=== PATIENT | female | born 1990 | race Caucasian/White ===

== ENCOUNTER 2016-12-24 15:15 | Observation (INO) | payer OTHER ==
[2016-12-24] MEDS ORDERED: 0.9 % SODIUM CHLORIDE 1,000 ML IV ONE (15:22)
[2016-12-24] MEDS ORDERED: ONDANSETRON HCL/PF 4 MG/ 2ML VIAL IVP ONE (15:22)
[2016-12-24 15:34] LABS: BASOPHILS % 0.9 (0.0-1.5); EOSINOPHILS % 1.2 % (0.0-6.8); LYMPHOCYTES # 1.7 # k/uL (0.6-4.0); MEAN CORPUSCULAR HEMOGLOBIN 33.8 pg (28.0-34.0); MONOCYTES # 0.3 # k/uL (0.0-0.9); MONOCYTES % 6.2 % (0.0-11.0); NEUTROPHILS # 2.8 # k/uL (1.4-7.7)
--- NOTE | 2016-12-24 15:34 | ED Physician Documentation ---
Psychological Disorders - HISTORIAN Historian: patient - HPI Chief Complaint: Psychological Disorder Additional Information: 26 yo F here for etoh withdrawl. Was going to [facility] but no current beds. Was called by Dr. Hernandez and asked to eval. Patient will likely need to be admitted obs pending placement to [facility]. She tells me she drank 2 beers and unknown amount of vodka today. States she has been drinking "for the last 2- 3 days straight." No recent illness. Medical history includes stroke which was believed 2/2 OC use. States drinking more due to stress, unwilling to talk about specific stressors. Denies HI, SI, denies coingestion. Last alcohol was about 1200 today. States only had about 2 beers today but is clearly intoxicated. All other systems reviewed and negative except per HPI. - ROS CONST: none NEURO/PSYCH: headache EYES/ENT: none CVS/RESP: none GI/: nausea, vomiting, abdominal pain MS/SKIN/LYMPH: denies: rash - PAST HX Psychiatric problems: other (alcoholism) DVT/PE Risk Factors: other (prior VCA) Surgical History: no surgical history Immunizations: UTD Allergies/Adverse Reactions: Allergies Allergy/AdvReac Type Severity Reaction Status Date / Time cortisone Allergy Verified 12/24/16 15:45 Home Medications: Ambulatory Orders Medication Instructions Recorded Buspirone HCl [Buspar] 10 mg PO DAILY 12/24/16 Fluoxetine HCl [Fluoxetine HCl] 40 mg PO DAILY 12/24/16 Naltrexone HCl [Revia] 50 mg PO DAILY 12/24/16 Trazodone HCl 50 mg PO HS 12/24/16 - Social HX Smoking History: cigarettes Marital Status: single Drug Use: none, other (etoh) - Family HX Family HX: mental illness - VITAL SIGNS Vital Signs: Vital Signs Temp Pulse Resp BP Pulse Ox 98.1 F 97 H 18 122/87 99 12/24/16 15:15 12/24/16 15:34 12/24/16 15:15 12/24/16 15:15 12/24/16 15:15 - REVIEWED ASSESSMENTS Nursing Assessment Reviewed: Yes Vitals Reviewed: Yes ED Results Lab/Radiology - Lab Results Lab Results: Lab Results 12/24/16 15:30 WBC 5.20 K/ul K/ul (4.00-12.00) RBC 4.63 M/ul M/ul (3.90-5.20) Hgb 15.6 g/dL g/dL (12.0-16.0) Hct 46.1 % % (34.5-46.5) MCV 99.5 fl fl (80.0-100.0) MCH 33.8 pg pg (28.0-34.0) MCHC 33.9 g/dL g/dL (30.0-36.0) RDW 14.1 % % (11.3-14.3) Plt Count 263 K/mm3 K/mm3 (130-400) Neut % (Auto) 54.7 % % (39.0-79.0) Lymph % (Auto) 33.3 % % (16.0-50.0) [place] % (Auto) 6.2 % % (0.0-11.0) Eos % (Auto) 1.2 % % (0.0-6.8) Baso % (Auto) 0.9 (0.0-1.5) Neut # 2.8 # k/uL # k/uL (1.4-7.7) Lymph # 1.7 # k/uL # k/uL (0.6-4.0) [place] # 0.3 # k/uL # k/uL (0.0-0.9) Eos # 0.1 # k/uL # k/uL (0.0-0.6) Baso # 0.0 # k/uL # k/uL (0.0-0.5) Reactive Lymphs % 3.7 % % (0.0-5.0) Reactive Lymphs # 0.2 # k/uL # k/uL (0.0-0.8) - Orders Orders: ED Orders Category Date Time Status Alcohol Withdrawal Assessment Q1H Care 12/24/16 15:23 Active Continuous EKG monitoring Q1H Care 12/24/16 15:[address] Saline Lock/IV Now Care 12/24/16 15:22 Active CBC/PLATELET/DIFF Stat Lab 12/24/16 15:30 Completed CMP [CMP] Routine Lab 12/24/16 15:30 Received ETHANOL MEDICAL USE ONLY Stat Lab 12/24/16 15:30 Received UA [URINALYSIS] Routine Lab 12/24/16 15:23 Ordered UDS [DRUG SCREEN URINE MEDICAL ONLY] Routine Lab 12/24/16 Ordered 0.9 % Sodium Chloride [Normal Saline] 1,000 ml Med 12/24/16 15:22 Active IV Q1H LORazepam [Ativan] Med 12/24/16 15:29 Ordered 2 mg IVP Q1H PRN Ondansetron HCl/Pf [Zofran 4 mg/2 ml] Med 12/24/16 15:22 Discontinued 4 mg IVP NOW ONE Transfer Routine Transfer 12/24/16 Ordered Psych Physical Exam - Physical Exam General Appearance: mild distress ENT: nml ENT inspection, other (dry mucous membranes) Eyes: PERRL. No: nystagmus Mental Status: tearful Suicide Attempts: denies Orientation: nml x3 Cranial Nerves: CN's intact as tested Respiratory: no resp distress, breath sounds normal CVS: heart sounds normal, no murmur, tachycardia Abdomen: non-tender, no organomegaly, nml bowel sounds Skin: warm/dry, normal color. No: diaphoresis Extremities: non-tender, no evidence of injury Discharge Clincal Impression: Alcohol abuse Alcohol dependence with withdrawal Qualifiers: Complication of substance-induced condition: uncomplicated Qualified Code(s): F10.230 - Alcohol dependence with withdrawal, uncomplicated Referrals: Primary Doctor,No [Primary Care Provider] - 2 Days Home Medications: Ambulatory Orders Buspirone HCl [Buspar] 10 mg PO DAILY 12/24/16 Fluoxetine HCl [Fluoxetine HCl] 40 mg PO DAILY 12/24/16 Naltrexone HCl [Revia] 50 mg PO DAILY 12/24/16 Trazodone HCl 50 mg PO HS 12/24/16 Comments: admitted obs for withdrawl, pending [facility] placement, likely tomorrow. Dr. Hernandez is aware of patient. [facility] protocol initiated. Initial score 1 in ED. Condition: Fair Disposition: ADMITTED INPATIENT Decision to Admit: [id number] Date of Decison to Admit: 12/24/16 Decision Time: 15:37
[2016-12-24 15:53] LABS: eGFR (African) > 60; eGFR (Non-African) > 60
[2016-12-24 16:13] LABS: APPEARANCE,URINE Clear (CLEAR); COLOR,URINE Yellow (YELLOW); OCCULT BLOOD,URINE Trace-lysed (NEGATIVE); PH URINE 6.5 (5.0 - 8.0); UROBILINOGEN URINE 0.2 Eu (0.2-1.0)
[2016-12-24 16:16] LABS: AMPHETAMINE NEGATIVE ng/mL (<1000); BARBITURATES NEGATIVE ng/mL (<300); CANNABINOIDS NEGATIVE ng/mL (<50); COCAINE NEGATIVE ng/mL (<150); METHAMPHETAMINE NEGATIVE ng/mL (<1000); METHYLENEDIOXYMETHAMPHETAMINE NEGATIVE ng/mL (<500)
[2016-12-24] MEDS ORDERED: ENOXAPARIN SODIUM 30 MG/0.3 ML DISP.SYRIN SQ SCH (16:34)
--- NOTE | 2016-12-24 16:50 | History and Physical Report ---
History of Present Illnes - History of Present Illness Reason for Visit: Chronic alcoholism/acute alcohol intoxication History of Present Illness: This is a 26 year old female admitted with chronic alcoholism/acute alcohol intoxication. She had presented to [facility] this afternoon, however they did not have a recovery room for her and she comes to our facility with plans for discharge to [facility] in the morning. Her blood alcohol level this afternoon is .470. - Past Medical History Cardiac: Other (History of central venous thrombosis). 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 MJ/benzos) Lives: With Family Domestic Violence: Negative - Health Maintenance Health Maintenance: denies: Cholesterol Influenza Vaccine: Current for this Influenza Season Pneumonia Vaccine: No Resuscitation Status: Resusciation Status Resuscitation Status Full Code - Unable to Obtain History Unable to Obtain: No Review of Systems - Review of Systems Constitutional: negative: Fever, Chills, Sweats Eyes: negative: pain ENT: negative: Ear Pain Respiratory: negative: Cough, Dry Cardiovascular: negative: Chest Pain Gastrointestinal: negative: Nausea, Vomiting, Abdominal Pain Genitourinary: negative: Dysuria, Frequency Musculoskeletal: Other (left ankle pain). negative: Neck Pain Skin: negative: Rash Neurological: Incoordination (due to intoxication). negative: Weakness, Numbness - Medications/Allergies Allergies/Adverse Reactions: Allergies Allergy/AdvReac Type Severity Reaction Status Date / Time cortisone Allergy Verified 12/24/16 15:45 Home Medications: Home Medications Buspirone HCl [Buspar] 10 mg PO DAILY 12/24/16 Fluoxetine HCl [Fluoxetine HCl] 40 mg PO DAILY 12/24/16 Naltrexone HCl [Revia] 50 mg PO DAILY 12/24/16 Trazodone HCl 50 mg PO HS 12/24/16 Current Inpatient Medications: Current Inpatient Medications Lorazepam (Ativan) 2 mg IVP Q1H PRN PRN Reason: Anxiety Exam - Exam General: Oriented to Person, Other (Acutely intoxicated 26 year old female. ), Average Body Habits HEENT: Atraumatic, PERRLA, EOMI. No: Scleral Icterus Neck: No: Stridor, Rigidity Lungs: Clear to auscultation, Normal air movement, Speaks full Sentences. No: Respiratory Distress, Wheezes, Rales Cardiovascular: Regular rate, Normal S1, Normal S2 Murmur: No: Systolic Murmur Murmur Location: [place] Abdomen: Normal bowel sounds, Soft, No tenderness, No hepatospenomegaly, No masses Genitourinary: No: Right Inguinal Hernia, Left Inguinal Hernia Male Genitourinary: No: Scrotal Edema Female Genitourinary: No: Prolapse, Masses Integumentary: Normal, [place], Warm Extremities: No clubbing, No cyanosis, Other (some pain with ROM of left ankle) Neurological: Normal speech Psych/Mental Status: No: Intact Judgment - Laboratory Results Laboratory Results: FÉLIX is 0.470 Mild elevation in transaminases Assessment/Plan - Assessment/Plan (1) Acute alcohol intoxication Status: Acute Current Visit: Yes Assessment: She is admitted for withdrawal protocol Plan is for discharge to [facility] tomorrow morning (2) Alcohol dependence with withdrawal Status: Acute Current Visit: Yes Qualifiers: Complication of substance-induced condition: uncomplicated Qualified Code(s ): F10.230 - Alcohol dependence with withdrawal, uncomplicated VTE Assessment - RISK FACTOR SCORE VTE RISK FACTOR SCORES: AGE 40-60 YEARS, ACUTE RESPIRATORY FAILURE/SEVERE COPD - RISK VTE LOW RISK: SCORE OF 1 OR LESS (RISK PROXIMAL DVT 0.4%) NO PROPHYLAXIS NEEDED VTE MODERATE RISK: SCORE OF 2 (RISK PROXIMAL DVT 2-4%) PROPHYAXIS NEEDED
[2016-12-24] MEDS: NICOTINE 14mg PATCH.TD24 TD SCH (17:48)
[2016-12-24 18:21] VITALS: BMI 21.8
[2016-12-24] MEDS ORDERED: SALINE FLUSH 10 ML DISP.SYRIN IVF ONE (20:44)
[2016-12-24] MEDS: LORazepam 2 MG/ML VIAL IVP PRN ×2 (21:20→23:33)
[2016-12-24] MEDS: 0.9 % SODIUM CHLORIDE 1,000 ML IV SCH (21:28)
[2016-12-25] MEDS: LORazepam 2 MG/ML VIAL IVP PRN (03:35)
[2016-12-25] MEDS: 0.9 % SODIUM CHLORIDE 1,000 ML IV SCH (05:31)
[2016-12-25 08:08] VITALS: BP 139/99
[2016-12-25] MEDS: NICOTINE 14mg PATCH.TD24 TD SCH (09:05)
--- NOTE | 2016-12-26 10:19 | Discharge Summary ---
DATE OF ADMISSION: December 24, 2016 DATE OF DISCHARGE: December 25, 2016 DIAGNOSES ON THIS HOSPITALIZATION: 1. Acute alcohol intoxication. 2. Chronic alcoholism. SUMMARIZATION OF ADMISSION HISTORY AND PHYSICAL: This 26-year-old female presented initially to [facility] on the day of admission with plans to be admitted there. At that time, she was acutely intoxicated and later proved to have a blood alcohol level of 0.470. They did not have a recovery room available, so she was admitted to our facility overnight for detoxification and then with plans to transfer her to [facility] in the morning. HOSPITAL COURSE: She was admitted. Her blood alcohol had come down to 0.218 after 6 hours of being in the hospital. Her sensorium had cleared significantly. We did place a nicotine patch during her stay. On the morning of discharge, she was discharged to [facility] with the current medications. She will be under alcohol withdrawal protocol there at [facility]. I will see her again tomorrow morning for follow up. CONDITION ON DISCHARGE: She is discharged to [facility] in markedly improved condition. MURIEL
== END 2016-12-25 10:35 | disposition short-term general hospital (02) ==
LOC: ED 15:15 → INTOOBSV 16:19 → SOUTH 16:19
PROVIDERS: ADMIT Family Medicine; ATTEND Family Medicine
DX: F10.229 Alcohol dependence with intoxication, unspecified (principal)
CPT/HCPCS: 80053; 80320; 80377; 81002; 85025; G0378; J2060; J2405; J7030; 96361; 96374; 96375; 96376; 99284; G0379; G0480; G0481; S1016

== ENCOUNTER 2017-05-24 13:25 | Emergency (ER) | payer OTHER ==
[2017-05-24] MEDS ORDERED: THIAMINE HCL 100 MG/ML 2ML VIAL ONE (13:30)
[2017-05-24] MEDS: THIAMINE HCL 100 MG, MVI, ADULT NO.1 WITH VIT K 10 ML, FOLIC ACID 5 MG in 0.9 % SODIUM ... IV ONE ×4 (13:30)
[2017-05-24] MEDS ORDERED: 0.9 % SODIUM CHLORIDE 1,000 ML IV ONE ×2 (13:30→14:13)
[2017-05-24] MEDS ORDERED: FOLIC ACID 5 MG/1 ML ONE (13:30)
[2017-05-24] MEDS ORDERED: MVI, ADULT NO.1 WITH VIT K 10 ML VIAL IV ONE (13:30)
[2017-05-24 13:51] LABS: EOSINOPHILS % 0.2 % (0.0-6.8); MEAN CORPUSCULAR HEMOGLOBIN 33.1 pg (28.0-34.0); MEAN CORPUSCULAR VOLUME 93.5 fl (80.0-100.0); MONOCYTES % 3.1 % (0.0-11.0); NEUTROPHILS # 5.7 # k/uL (1.4-7.7)
[2017-05-24 14:04] LABS: eGFR (African) > 60; eGFR (Non-African) > 60
[2017-05-24] MEDS: 0.9 % SODIUM CHLORIDE 1,000 ML IV ONE (14:15)
--- NOTE | 2017-05-24 15:09 | ED Physician Documentation ---
Psychological Disorders - HISTORIAN Historian: patient, parent - HPI Stated Complaint: Alcohol Intoxication Chief Complaint: Overdose Onset: days ago (started 5 days ago) Intent: no answer Severity: severe Further Comments: yes (26 year old female patient brought in by parents with intoxication. Patient reports a 5 day history of drinking, "5 bottles today". Parents report a 15 year history of ETOH abuse. Inpatient at [facility] for 28 days. Patient denies any drug use. Patient unable to contribute to ROS and history due to intoxication.) - ROS CONST: none NEURO/PSYCH: none EYES/ENT: none CVS/RESP: none GI/: denies: nausea, vomiting Comment: Increased stress related to school per parents. - PAST HX Psychiatric problems: depression DVT/PE Risk Factors: none Surgical History: no surgical history Allergies/Adverse Reactions: Allergies Allergy/AdvReac Type Severity Reaction Status Date / Time cortisone Allergy Verified 05/24/17 14:09 Home Medications: Ambulatory Orders Medication Instructions Recorded Fluoxetine HCl [Fluoxetine HCl] 40 mg PO DAILY 12/24/16 - Social HX Smoking History: non-smoker - Family HX Family HX: denies: other - VITAL SIGNS Vital Signs: Vital Signs Temp Pulse Resp BP Pulse Ox 98 F 99 H 18 141/95 99 05/24/17 13:25 05/24/17 15:15 05/24/17 15:15 05/24/17 15:15 05/24/17 15:15 - REVIEWED ASSESSMENTS Nursing Assessment Reviewed: Yes Vitals Reviewed: Yes Progress - Progress Progress: Patient extremely intoxicated on arrival, unable to answer all ROS and history. Will not state amount or what she has been drinking, "5 bottles". Discussed history with parents - patient in patient at [facility] in 12/2016; does not attend AA or have a sponsor, no counselor. 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 Parents report 15 year history of ETOH abuse. Unsure how many days patient has been relapsed. ETOH 450 - recommended transfer to higher level of care for DT treatment and psych evaluation. Recommended [facility], where both services would be available. Parents agree. ED Results Lab/Radiology - Lab Results Lab Results: Lab Results 05/24/17 05/24/17 13:45 13:45 WBC 9.20 K/ul K/ul (4.00-12.00) RBC 4.79 M/ul M/ul (3.90-5.20) Hgb 15.9 g/dL g/dL (12.0-16.0) Hct 44.7 % % (34.5-46.5) MCV 93.5 fl fl (80.0-100.0) MCH 33.1 pg pg (28.0-34.0) MCHC 35.4 g/dL g/dL (30.0-36.0) RDW 12.8 % % (11.3-14.3) Plt Count 316 K/mm3 K/mm3 (130-400) Neut % (Auto) 62.1 % % (39.0-79.0) Lymph % (Auto) 31.6 % % (16.0-50.0) [place] % (Auto) 3.1 % % (0.0-11.0) Eos % (Auto) 0.2 % % (0.0-6.8) Baso % (Auto) 1.0 (0.0-1.5) Neut # (Auto) 5.7 # k/uL # k/uL (1.4-7.7) Lymph # (Auto) 2.9 # k/uL # k/uL (0.6-4.0) [place] # (Auto) 0.3 # k/uL # k/uL (0.0-0.9) Eos # (Auto) 0.0 # k/uL # k/uL (0.0-0.6) Baso # (Auto) 0.1 # k/uL # k/uL (0.0-0.5) Reactive Lymphs % 2.1 % % (0.0-5.0) Reactive Lymphs # 0.2 # k/uL # k/uL (0.0-0.8) Sodium 144 mmol/L mmol/L (136-145) Potassium 4.1 mmol/L mmol/L (3.5-5.0) Chloride 105 mmol/L mmol/L (98-110) Carbon Dioxide 28 mmol/L mmol/L (20-32) BUN 12 mg/dL mg/dL (10-26) Creatinine 0.6 mg/dL mg/dL (0.4-1.5) Est GFR ( Amer) > 60 (60 - ) Est GFR (Non-Af Amer) > 60 (60 - ) Glucose 112 mg/dL H mg/dL (70-99) Calcium 9.1 mg/dL mg/dL (8.5-10.5) Total Bilirubin 0.7 mg/dL mg/dL (0.2-1.2) AST 119 U/L H U/L (0-41) ALT 110 U/L H U/L (0-45) Alkaline Phosphatase 91 U/L U/L (46-116) Total Protein 7.3 g/dL g/dL (6.0-8.5) Albumin 4.9 g/dL g/dL (3.0-5.5) Ethyl Alcohol 450.2 MG/DL H MG/DL (<10.0) - Orders Orders: ED Orders Category Date Time Status Apply Restraints 1T Care 05/24/17 13:40 Active Neil [Urinary catheterization] 1T Care 05/24/17 13:45 Active Remove Restraints .Once Care 05/24/17 14:52 Active CBC/PLATELET/DIFF Stat Lab 05/24/17 13:45 Completed CMP Stat Lab 05/24/17 13:45 Completed ETHANOL MEDICAL USE ONLY Stat Lab 05/24/17 13:45 Completed UA W/MICRO IF INDICATED Stat Lab 05/24/17 13:43 Ordered URINE HCG Stat Lab 05/24/17 13:56 Ordered Urine drug screen [DRUG SCREEN URINE MEDICAL ONLY] Stat Lab 05/24/17 Ordered 0.9 % Sodium Chloride [Normal Saline] 1,000 ml Med 05/24/17 13:30 Discontinued IV .STK-MED 0.9 % Sodium Chloride [Normal Saline] 1,000 ml Med 05/24/17 14:13 Discontinued IV .STK-MED 0.9 % Sodium Chloride [Normal Saline] 1,000 ml Med 05/24/17 14:12 Discontinued IV NOW Folic Acid [Folvite] Med 05/24/17 13:30 Discontinued 5 mg .ROUTE .STK-MED ONE Mvi, Adult No.1 with Vit K [M.v.i. Adult] Med 05/24/17 13:30 Discontinued 10 ml IV .STK-MED ONE Thiamine HCl Med 05/24/17 13:30 Discontinued 200 mg .ROUTE .STK-MED ONE Thiamine HCl 100 mg Med 05/24/17 13:30 Discontinued Mvi, Adult No.1 with Vit K [M.v.i. Adult] 10 ml Folic Acid [Folvite] 5 mg 0.9 % Sodium Chloride [Normal Saline] 1,000 ml IV NOW Psych Physical Exam - Physical Exam General Appearance: other (intoxicated) Eyes: PERRL Suicide Attempts: denies Orientation: uncooperative, disoriented Sensory, Motor: nml motor response Neck/Back: normal inspection Respiratory: no resp distress, chest non-tender, breath sounds normal CVS: reg rate & rhythm, heart sounds normal, equal pulses, no murmur, no gallop , PMI nml, no JVD, no friction rub, 24 Abdomen: non-tender, no organomegaly, nml bowel sounds, no distention Skin: normal color, warm/dry, NR, INT, PAL, DR Extremities: non-tender, normal range of motion, no evidence of injury, 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
[2017-05-24 15:27] VITALS: BP 141/95
[2017-05-25 05:40] LABS: AMPHETAMINE NEGATIVE ng/mL (<1000); APPEARANCE,URINE CLEAR (CLEAR); BARBITURATES NEGATIVE ng/mL (<300); CANNABINOIDS NEGATIVE ng/mL (< 50); COCAINE NEGATIVE ng/mL (<150); COLOR,URINE YELLOW (YELLOW); METHAMPHETAMINE NEGATIVE ng/mL (<1000); METHYLENEDIOXYMETHAMPHETAMINE NEGATIVE ng/mL (<500); MORPHINE NEGATIVE ng/mL (<300); OCCULT BLOOD,URINE TRACE-INTACT (NEGATIVE); PH URINE 5.5 (5.0 - 8.0); URINE HCG NEGATIVE (NEGATIVE)
== END 2017-05-24 15:15 | disposition short-term general hospital (02) ==
LOC: ED 13:25
DX: F10.920 Alcohol use, unspecified with intoxication, uncomplicated (principal); F10.21 Alcohol dependence, in remission
CPT/HCPCS: 80053; 80320; 85025; J3411; J3490; J7030; 51702; 80377; 81002; 81025; 96361; 96374; 99284; G0480; G0481; S1016

== ENCOUNTER 2017-07-09 18:18 | Emergency (ER) | payer OTHER ==
--- NOTE | 2017-07-09 18:25 | ED Physician Documentation ---
General Adult - HISTORIAN Historian: patient, paramedics - HPI Stated Complaint: seizure, etoh Chief Complaint: General Adult Onset: minutes Timing: better Severity: moderate Further Comments: yes (Pt is a 26 yo female who [facility] Pt started rehab for alcohol abuse. She denies drug abuse. Pt states that she last had etoh at about noon today and drank 3 beers. Seizure lasted 15 minutes per report and then pt appeared post-ictal. Pt has multiple patches of ecchymosis on extremities and a L forehead/temporal hematoma. Pt is communicative but still appears post-ictal. Pt states that abrasions/ecchymosis is from previous falls due to alcohol use. 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.) - ROS CONST: weakness, other (pt is post ictal and may not give reliable ROS) EYES/ENT: none CVS/RESP: none GI/: vomiting, nausea MS/SKIN/LYMPH: other (bruising) NEURO/PSYCH: other (seizure) - PAST HX Past History: other (alcohol abuse) - SOCIAL HX Smoking History: cigarettes Alcohol Use: heavy Drug Use: other (denies) - FAMILY HX Family History: No - VITAL SIGNS Vital Signs: Vital Signs Temp Pulse Resp BP Pulse Ox 141/95 05/24/17 15:15 - REVIEWED ASSESSMENTS Nursing Assessment Reviewed: Yes Vitals Reviewed: Yes <Lenin Aragon - Last Filed: 07/09/17 19:36> - VITAL SIGNS Vital Signs: Vital Signs Temp Pulse Resp BP Pulse Ox 99.3 F 118 H 20 141/101 97 07/09/17 18:20 07/09/17 18:20 07/09/17 18:20 07/09/17 18:20 07/09/17 18:20 <VIRA MALIK - Last Filed: 07/09/17 21:05> - PAST HX Allergies/Adverse Reactions: Allergies Allergy/AdvReac Type Severity Reaction Status Date / Time cortisone Allergy Verified 07/09/17 18:28 Home Medications: Ambulatory Orders Medication Instructions Recorded Fluoxetine HCl [Fluoxetine HCl] 40 mg PO DAILY 12/24/16 Glycopyrrolate [Robinul] 3 mg PO DAILY 07/09/17 Methocarbamol [Methocarbamol] 100 mg PO DAILY 07/09/17 Progress - Progress Progress: NS 1 L IVF Zofran 4 mg IV Diazepam 5 mg IV Care transferred to [facility] Malik at 1900. <Lenin Aragon - Last Filed: 07/09/17 19:36> - Progress Progress: Examination: CT head without contrast History: Seizure Comparison exam: None available Technique: Noncontrast head CT protocol. Findings: Ventricles and sulci are appropriate for patient age. Cerebrocerebellar parenchyma demonstrates normal attenuation. No evidence for parenchymal hemorrhage. No evidence for mass or mass effect. No midline shift. No extra axial fluid collections. Partial visualization of the paranasal sinuses , mastoid air cells, orbits, skull and scalp without gross irregularity. Impression: No acute parenchymal process. No hemorrhage. Electronically signed on Jul 09, 2017 8:28:15 PM CDT by: Alverto Mittal 2042, Seizure activity, frothing, stiffened extremities, slight tonic clonic activity. Given 3 mg valium IVP. VS remained stable 142/106, puls eox 97%, pulse 100, R 16. FSG 102. ETOH this evening 76. May visit to this ER shows ETOH 450. No HX seizure disorder/activity in previous visits here in December, May. 2100, pt accepted for transfer to [facility] ER per Dr. Faith. <VIRA MALIK - Last Filed: 07/09/17 21:05> ED Results Lab/Radiology - Lab Results Lab Results: Lab Results 07/09/17 07/09/17 07/09/17 19:19 19:19 19:19 WBC 8.30 K/ul K/ul (4.00-12.00) RBC 4.51 M/ul M/ul (3.90-5.20) Hgb 15.2 g/dL g/dL (12.0-16.0) Hct 43.4 % % (34.5-46.5) MCV 96.2 fl fl (80.0-100.0) MCH 33.7 pg pg (28.0-34.0) MCHC 35.1 g/dL g/dL (30.0-36.0) RDW 14.3 % % (11.3-14.3) Plt Count 133 K/mm3 K/mm3 (130-400) Neut % (Auto) 86.1 % H % (39.0-79.0) Lymph % (Auto) 9.5 % L % (16.0-50.0) [place] % (Auto) 3.1 % % (0.0-11.0) Eos % (Auto) 0.4 % % (0.0-6.8) Baso % (Auto) 0.3 (0.0-1.5) Neut # (Auto) 7.1 # k/uL # k/uL (1.4-7.7) Lymph # (Auto) 0.8 # k/uL # k/uL (0.6-4.0) [place] # (Auto) 0.2 # k/uL # k/uL (0.0-0.9) Eos # (Auto) 0.0 # k/uL # k/uL (0.0-0.6) Baso # (Auto) 0.0 # k/uL # k/uL (0.0-0.5) Reactive Lymphs % 0.7 % % (0.0-5.0) Reactive Lymphs # 0.1 # k/uL # k/uL (0.0-0.8) Sodium 137 mmol/L mmol/L (136-145) Potassium 3.3 mmol/L L mmol/L (3.5-5.0) Chloride 95 mmol/L L mmol/L (98-110) Carbon Dioxide 21 mmol/L mmol/L (20-32) BUN 6 mg/dL L mg/dL (10-26) Creatinine 0.6 mg/dL mg/dL (0.4-1.5) Estimated Creat Clear 169 Est GFR ( Amer) > 60 (60 - ) Est GFR (Non-Af Amer) > 60 (60 - ) Glucose 86 mg/dL mg/dL (70-99) Calcium 9.3 mg/dL mg/dL (8.5-10.5) Total Bilirubin 1.0 mg/dL mg/dL (0.2-1.2) AST 58 U/L H U/L (0-41) ALT 17 U/L U/L (0-45) Alkaline Phosphatase 91 U/L U/L (46-116) Total Protein 7.4 g/dL g/dL (6.0-8.5) Albumin 4.6 g/dL g/dL (3.0-5.5) Serum HCG, Qual Negative (NEGATIVE) Ethyl Alcohol 76.0 MG/DL H MG/DL (<10.0) - Orders Orders: ED Orders Category Date Time Status Place IV Lock 1T Care 07/09/17 18:[address] BRAIN W/O CONTRAST Stat Exams 07/09/17 Taken CBC/PLATELET/DIFF Routine Lab 07/09/17 19:19 Completed CMP Routine Lab 07/09/17 19:19 Completed ETHANOL MEDICAL USE ONLY Routine Lab 07/09/17 19:19 Completed SERUM HCG Stat Lab 07/09/17 19:19 Completed 0.9 % Sodium Chloride [Normal Saline] 1,000 ml Med 07/09/17 18:47 Discontinued IV .STK-MED 0.9 % Sodium Chloride [Normal Saline] 1,000 ml Med 07/09/17 18:51 Discontinued IV Q1H Diazepam [Valium] Med 07/09/17 18:50 Discontinued 5 mg .ROUTE .STK-MED ONE Diazepam [Valium] Med 07/09/17 18:50 Discontinued 5 mg IVP NOW ONE Ondansetron HCl/Pf [Zofran 4 mg/2 ml] Med 07/09/17 18:55 Discontinued 4 mg .ROUTE .STK-MED ONE Ondansetron HCl/Pf [Zofran 4 mg/2 ml] Med 07/09/17 18:55 Discontinued 4 mg IVP NOW ONE Ondansetron HCl/Pf [Zofran 4 mg/2 ml] Med 07/09/17 20:29 Once 4 mg IVP NOW ONE Thiamine HCl 100 mg Med 07/09/17 18:30 Discontinued Mvi, Adult No.1 with Vit K [M.v.i. Adult] 10 ml Folic Acid [Folvite] 5 mg 0.9 % Sodium Chloride [Normal Saline] 1,000 ml IV NOW <VIRA MALIK - Last Filed: 07/09/17 21:05> General Adult Physical Exam - PHYSICAL EXAM GENERAL APPEARANCE: moderate distress (post-ictal) EENT: eye inspection normal, pharynx normal NECK: normal inspection, supple RESPIRATORY: no resp distress, chest non-tender, breath sounds normal CVS: tachycardia ABDOMEN: soft, no organomegaly, normal bowel sounds BACK: normal inspection, no CVA tenderness SKIN: other (ecchymosis b/l knees; hematoma, bruising L forehead) EXTREMITIES: normal range of motion, no edema NEURO: motor nml, sensation nml, other (post-ictal) <Lenin Aragon - Last Filed: 07/09/17 19:36> Discharge <Lenin Aragon - Last Filed: 07/09/17 19:36> Decision to Admit: NO Decision Time: 21:00 <VIRA MALIK - Last Filed: 07/09/17 21:05> Clincal Impression: ETOH abuse, Seizure Alcohol dependence with withdrawal Qualifiers: Complication of substance-induced condition: with unspecified complication Qualified Code(s): F10.239 - Alcohol dependence with withdrawal, unspecified Referrals: Primary Doctor,No [Primary Care Provider] - 2 Days Home Medications: Ambulatory Orders Fluoxetine HCl [Fluoxetine HCl] 40 mg PO DAILY 12/24/16 Glycopyrrolate [Robinul] 3 mg PO DAILY 07/09/17 Methocarbamol [Methocarbamol] 100 mg PO DAILY 07/09/17 Condition: Fair Disposition: XFER [facility]
[2017-07-09] MEDS ORDERED: THIAMINE HCL 100 MG, MVI, ADULT NO.1 WITH VIT K 10 ML, FOLIC ACID 5 MG in 0.9 % SODIUM ... IV ONE ×4 (18:30)
[2017-07-09] MEDS ORDERED: 0.9 % SODIUM CHLORIDE 1,000 ML IV ONE ×3 (18:47→20:35)
[2017-07-09] MEDS ORDERED: DIAZEPAM 5 MG/ML DISP.SYRIN ONE (18:50)
[2017-07-09] MEDS ORDERED: DIAZEPAM 5 MG/ML DISP.SYRIN IVP ONE ×2 (18:50→20:40)
[2017-07-09] MEDS ORDERED: ONDANSETRON HCL/PF 4 MG/ 2ML VIAL ONE (18:55)
[2017-07-09] MEDS ORDERED: ONDANSETRON HCL/PF 4 MG/ 2ML VIAL IVP ONE ×2 (18:55→20:29)
[2017-07-09 19:25] LABS: BASOPHILS % 0.3 (0.0-1.5); EOSINOPHILS % 0.4 % (0.0-6.8); MEAN CORPUSCULAR HEMOGLOBIN 33.7 pg (28.0-34.0); MEAN CORPUSCULAR VOLUME 96.2 fl (80.0-100.0); MONOCYTES % 3.1 % (0.0-11.0); NEUTROPHILS # 7.1 # k/uL (1.4-7.7)
[2017-07-09 19:46] LABS: eGFR (African) > 60; eGFR (Non-African) > 60
[2017-07-09] MEDS ORDERED: MVI, ADULT NO.1 WITH VIT K 10 ML VIAL IV ONE (20:41)
[2017-07-09] MEDS ORDERED: THIAMINE HCL 100 MG/ML 2ML VIAL ONE (20:41)
--- NOTE | 2017-07-09 21:43 | Diagnostic Imaging Report ---
ANNAMARIE MALIK [facility] [address] [facility] [address] [place], [place]. [address] Report Submission Date: Jul 09, 2017 8:28:15 PM CDT Patient Study Name: ROSHNI JORDAN Date: Jul 09, 2017 7:51:06 PM CDT Modality Type: CT\SR Gender: F Description: CT BRAIN W/O CONTRAST : 88 Institution: [facility] Physician: ANNAMARIE MALIK Examination: CT head without contrast History: Seizure Comparison exam: None available Technique: Noncontrast head CT protocol. Findings: Ventricles and sulci are appropriate for patient age. Cerebrocerebellar parenchyma demonstrates normal attenuation. No evidence for parenchymal hemorrhage. No evidence for mass or mass effect. No midline shift. No extra axial fluid collections. Partial visualization of the paranasal sinuses , mastoid air cells, orbits, skull and scalp without gross irregularity. Impression: No acute parenchymal process. No hemorrhage. Electronically signed on Jul 09, 2017 8:28:15 PM CDT by: Alverto LLAMAS
[2017-07-09 21:52] VITALS: BP 143/96
== END 2017-07-09 21:35 | disposition short-term general hospital (02) ==
LOC: ED 18:18
DX: G40.409 Other generalized epilepsy and epileptic syndromes, not intractable, without status epilepticus (principal); F10.239 Alcohol dependence with withdrawal, unspecified
CPT/HCPCS: 70450; 80053; 80320; 84703; 85025; 85610; J2405; J3360; J3411; J3490; J7030; 96361; 96365; 96375; 96376; 99284; G0480; S1016